=== PATIENT | male | born 1980 | race Caucasian/White ===

== ENCOUNTER 2019-07-22 10:47 | Emergency (ER) | payer OTHER, SELFPAY ==
[2019-07-22 10:55] VITALS: BP 122/64; PULSE 114; RESP 20; TEMP 36.7; O2SAT 98
--- NOTE | 2019-07-22 11:02 | ED.UPPEXIN ---
HPI - Extremity Injury (Upper) General Chief Complaint: Extremity Injury, Upper Stated Complaint: left wrist pain Time Seen by Provider: 07/22/19 11:02 Source: patient and RN notes reviewed Mode of arrival: ambulatory Limitations: no limitations History of Present Illness HPI narrative: This is a 39 years old male presents to the office for an evaluation of left wrist pain since yesterday. He woke up with pain. Pain is sharp to throbbing. Denies directed trauma/injury. He is a chief. Admits to history of gout; used to be on allopurinol however he ran out of prescription and he is in the middle of looking for a new primary care doctor. He has tried ice for pain which has helped a little bit. Related Data Home Medications Medication Instructions Recorded Confirmed lisinopril 40 mg PO DAILY 07/22/19 07/22/19 Allergies Allergy/AdvReac Type Severity Reaction Status Date / Time azithromycin Allergy Intermediate hives Verified 07/22/19 11:03 Penicillins Allergy Intermediate Hives Verified 07/22/19 11:03 sulfamethoxazole Allergy Intermediate Hives Verified 07/22/19 11:03 trimethoprim Allergy Intermediate Hives Verified 07/22/19 11:03 ampicillin Allergy Unknown Hives Verified 07/22/19 11:03 dicloxacillin Allergy Unknown Hives Verified 07/22/19 11:03 sulfamethizole Allergy Unknown Hives Verified 07/22/19 11:03 Review of Systems Review of Systems: Narrative: CONSTITUTIONAL: Denies feeling ill ENT: Denies congestion CARDIOVASCULAR: Denies chest pain RESPIRATORY: Denies dyspnea GASTROINTESTINAL: Denies nausea, vomiting SKIN: Denies rash/lesions MUSCULOSKELETAL:Reports left wrist pain with tingling sensation in fingers. NEUROLOGIC: Denies lightheaded/numbness PMFSH Past Medical History Medical History GERD (gastroesophageal reflux disease) Gout Herniated disc T12, c5-6 HTN (hypertension) Sleep apnea Family History Family History Grandparent Hypertension Cerebrovascular accident Family history of coronary artery disease Diabetes mellitus Father Family history of coronary artery disease Social History Social History Alcohol intake: current Comments At time of signature, I agree with nursing past medical, surgical, social and family history. There is no relevant family history pertinent to the presenting complaint. Exam Narrative: Exam Narrative: GENERAL: This is a well-nourished, well-developed patient, in no apparent distress. CARDIOVASCULAR: Regular rate and rhythm without murmurs, gallops, or rubs. RESPIRATORY: Clear to auscultation. Breath sounds equal bilaterally. No wheezes, rales, or rhonchi. GASTROINTESTINAL: Abdomen soft, non-tender, nondistended. Bowel sounds are active. No hepato-splenomegaly, or palpable masses. No guarding. NEURO: awake, alert, and oriented to person, place and time. There were no obvious focal neurologic abnormalities. EXTREMITIES: the left wrist is with obvious asymmetry or deformity when compared to the right wrist. NO surface trauma, open wounds, swelling or obvious deformity. No overlying erythema or warmth. No bony crepitus or focal area of tender to palpate.ROM is limited to pain. Motor/sensory function of ulnar, radial, median nerves intact. Ulnar and radial pulses intact. Course Vital Signs Vital signs: Vital Signs Temperature 98.0 F 07/22/19 10:55 Pulse Rate 114 H 07/22/19 10:55 Respiratory Rate 07/22/19 10:55 Blood Pressure 122/64 07/22/19 10:55 Pulse Oximetry 98 07/22/19 10:55 Temperature 98.0 F 07/22/19 10:55 Pulse Rate 114 H 07/22/19 10:55 Respiratory Rate 07/22/19 10:55 Blood Pressure 122/64 07/22/19 10:55 Pulse Oximetry 98 07/22/19 10:55 MDM - Extremity Injury (Upper) MDM Narrative Medical decision making narrative: Discharge instructions reviewed w
== END 2019-07-22 11:21 | disposition home or self-care (01) ==
PROVIDERS: Emergency Provider Nurse Practitioner
DX: M25.532 Pain in left wrist (principal); K21.9 Gastro-esophageal reflux disease without esophagitis; M10.9 Gout, unspecified; I10 Essential (primary) hypertension; G47.30 Sleep apnea, unspecified
CPT/HCPCS: 99213; A4565; G0463

== ENCOUNTER 2020-04-22 15:47 | Emergency (ER) | payer OTHER, SELFPAY ==
[2020-04-22 15:50] VITALS: BP 153/86; PULSE 86; RESP 14; TEMP 36.6; O2SAT 98
--- NOTE | 2020-04-22 15:55 | ED.GENADULT ---
HPI - General Adult General Chief complaint: Headache Stated complaint: heart racing and feels in head Time Seen by Provider: 04/22/20 16:05 Source: patient and RN notes reviewed Mode of arrival: ambulatory Limitations: no limitations History of Present Illness HPI narrative: 39-year-old male presents with concern for heart racing and feels his heartbeat in his head he reports the symptoms started approximately 1 hour ago, and have mostly resolved. He reports a history of hypertension, started new hypertensive medications approximately 3 weeks ago, denies any side effects from his medications. Reports when his symptoms started earlier he also had a headache, he took aspirin and the headache resolved. He denies thunderclap headache, the worst headache of his life. Denies dizziness, weakness in the extremity, difficulty speaking, difficulty swallowing. Reports clearing his throat more often in the last hour. He denies fever, malaise, cough, shortness of breath, chest pain, palpitations, diaphoresis. Reports edema bilateral lower legs which is his baseline. Reports history of anxiety MD complaint: Heart racing Related Data Home Medications Medication Instructions Recorded Confirmed lisinopril 40 mg PO DAILY 07/22/19 07/22/19 allopurinol 300 mg PO DAILY 04/22/20 04/22/20 carvedilol 12.5 mg PO BID 04/22/20 04/22/20 hydrochlorothiazide 25 mg PO DAILY 04/22/20 04/22/20 Allergies Allergy/AdvReac Type Severity Reaction Status Date / Time azithromycin Allergy Intermediate hives Verified 04/22/20 16:06 Penicillins Allergy Intermediate Hives Verified 04/22/20 16:06 sulfamethoxazole Allergy Intermediate Hives Verified 04/22/20 16:06 trimethoprim Allergy Intermediate Hives Verified 04/22/20 16:06 ampicillin Allergy Unknown Hives Verified 04/22/20 16:06 dicloxacillin Allergy Unknown Hives Verified 04/22/20 16:06 sulfamethizole Allergy Unknown Hives Verified 04/22/20 16:06 Review of Systems Review of Systems: Narrative: CONSTITUTIONAL: Denies malaise, chills, sweats, or fever. EYES: Denies visual changes, redness, or discharge. ENT: Denies rhinorrhea, congestion, sinus pain, otalgia or sore throat. Reports throat clearing. Denies swollen lips, swollen tongue CARDIOVASCULAR: Denies chest pain, palpitations, or edema. Reports feeling of fast heartbeat RESPIRATORY: Denies cough or dyspnea. GASTROINTESTINAL: Denies abdominal pain, nausea, vomiting, diarrhea SKIN: Denies rash or itching. MUSCULOSKELETAL: Denies back pain, joint pain, or myalgia. NEUROLOGIC: Denies numbness, weakness. Reports history of headache. PSYCHIATRIC: Denies current anxiety or depression. All systems reviewed & are unremarkable except as noted in HPI and below PMFSH Past Medical History Medical History (Updated 04/22/20 @ 16:13 by Shaylee Cruz NP) GERD (gastroesophageal reflux disease) Gout Herniated disc T12, c5-6 HTN (hypertension) Sleep apnea Family History Family History Grandparent Hypertension Cerebrovascular accident Family history of coronary artery disease Diabetes mellitus Father Family history of coronary artery disease Social History Social History Alcohol intake: current Comments At time of signature, agree with nursing past medical, surgical, social and family history. There is no relevant family history pertinent to the presenting complaint Exam Narrative: Exam Narrative: GENERAL: Well-appearing, well-nourished, and in no acute distress. HEAD: Normocephalic, atraumatic. EYES: PERRLA, conjunctivae clear, and EOMI. No nystagmus. ENT: Nares clear, turbinates pink, no rhinorrhea or epistaxis. Mucous membranes moist. TM pearly drummond with sharp light reflex bilaterally; no tragal tenderness. Oropharynx without erythema or lesions. Tonsils not enlarged and without exudate. NECK: Supple. No lymphadenopathy. No jugular cassi
--- NOTE | 2020-04-22 15:59 | ECG_ITS ---
Measurements Intervals [place] Rate: 76 P: 9 MS: 177 QRS: 43 QRSD: 91 T: 44 QT: 413 QTc: 467 Interpretive Statements SINUS RHYTHM NORMAL ECG Electronically Signed On 04-23-2020 7:40:53 SETTER OFF by Johnnie Cueto D.O.
[2020-04-22 16:09] VITALS: BP 153/86; PULSE 86; RESP 14; TEMP 36.6; O2SAT 98
== END 2020-04-22 16:17 | disposition home or self-care (01) ==
PROVIDERS: Emergency Provider Nurse Practitioner
DX: I11.0 Hypertensive heart disease with heart failure (principal); K21.9 Gastro-esophageal reflux disease without esophagitis; M10.9 Gout, unspecified; G47.30 Sleep apnea, unspecified
CPT/HCPCS: 93005; 99213; G0463